=== PATIENT | female | born 1985 | race Caucasian/White ===

== ENCOUNTER 2016-10-12 10:37 | Day surgery (SDC) | payer OTHER ==
[~2016-10-12] VITALS: Ht 167.6 cm; Wt 72.6 kg
[~2016-10-12 10:37] MED LIST: ALBUTEROL SULF8.5 GM; ALLERGY10 M1 PO; AMITIZA24 MICROGR; AMITIZA24 MICROGR PO; BACTRIM,SEPT1 TABLET PO; BENTYL20 MG PO; CIPRO500 MG PO; CLONAZEPAM1 MG PO; ENDOCET 5-3251 EACH PO; FLEXERIL10 MG PO; FLONASE16 G1 BOTH NARES; FOCALIN XR40 MG PO; IMITREX100 MG PO; IMITREX5 MG NS; JOLESSA1 EACH; JOLESSA1 EACH PO; KENALOG,ARISTOC80 GM TP; KETOCONAZOLE120 ML TP; KLONOPIN1 MG PO; LEVOTHROID50 MCG PO; LEVOTHROID75 MCG PO; METRO GEL 1%60 GM; MORPHINE SULFAT15 M1 PO; MOTRIN800 MG PO; NAPROSYN500 MG PO; PERCOCET 5/31 TABLET PO; PRILOSEC20 MG PO; PYRIDIUM200 MG PO; RANITIDINE HCL150 M1 PO; RANITIDINE HCL150 MG; SYNTHROID100 MCG PO; TIZANIDINE HCL2 M1 PO; TOPROL XL25 MG PO; TOPROL XL50 MG PO; TRAMADOL HCL50 MG PO; VOLTAREN-XR100 MG PO; WELLBUTRIN SR150 MG; WELLBUTRIN SR150 MG PO; XANAX0.5 MG PO; ZANAFLEX4 M1 PO; ZOFRAN ODT8 MG PO; ZOFRAN4 MG PO; ZYBAN 150 MG T150 MG PO; ZYRTEC10 M2 PO
== END 2016-10-12 12:12 | disposition home or self-care (01) ==
LOC: PAIN 10:37
PROC: 015B3ZZ Destruction of Lumbar Nerve, Percutaneous Approach (ICD-10-PCS; principal; 2016-10-12)
DX: M47.816 Spondylosis without myelopathy or radiculopathy, lumbar region (principal); F41.9 Anxiety disorder, unspecified; M48.06 Spinal stenosis, lumbar region; M54.2 Cervicalgia; M41.9 Scoliosis, unspecified; G89.29 Other chronic pain; M25.561 Pain in right knee; K21.9 Gastro-esophageal reflux disease without esophagitis; E66.3 Overweight; Z68.26 Body mass index [BMI] 26.0-26.9, adult; Z88.0 Allergy status to penicillin; Z88.2 Allergy status to sulfonamides; Z88.1 Allergy status to other antibiotic agents; Z88.8 Allergy status to other drugs, medicaments and biological substances
CPT/HCPCS: J1030; J2250; J3010; S0020

== ENCOUNTER 2016-10-19 09:32 | Day surgery (SDC) | payer OTHER ==
[~2016-10-19] VITALS: Ht 167.6 cm; Wt 72.6 kg
== END 2016-10-19 11:15 | disposition home or self-care (01) ==
LOC: PAIN 09:32 → SDC 09:45 → PAIN 11:15
PROC: 015B3ZZ Destruction of Lumbar Nerve, Percutaneous Approach (ICD-10-PCS; principal; 2016-10-19)
DX: M47.816 Spondylosis without myelopathy or radiculopathy, lumbar region (principal); F41.9 Anxiety disorder, unspecified; M48.06 Spinal stenosis, lumbar region; M41.9 Scoliosis, unspecified; M25.561 Pain in right knee; M25.562 Pain in left knee; M54.2 Cervicalgia; G89.29 Other chronic pain; I10 Essential (primary) hypertension; Z86.14 Personal history of Methicillin resistant Staphylococcus aureus infection; Z88.8 Allergy status to other drugs, medicaments and biological substances
CPT/HCPCS: J1030; J2250; J3010; S0020